=== PATIENT | male | born 1970 | race Caucasian/White ===

== ENCOUNTER 2019-04-29 21:06 | Inpatient (IN) | payer BC, OTHER ==
[~2019-04-29] VITALS: Ht 185.4 cm; Wt 75.7 kg
[2019-04-29 21:06] VITALS: BP_SYST 98
[2019-04-29] MEDS ORDERED: NACL 0.9% 1,000 ML IV ONE (21:15)
[2019-04-29] MEDS ORDERED: PIPERACILLIN/TAZO 3.375 GM in NS 50 ML IV ONE (21:15)
[2019-04-29] MEDS ORDERED: VANCOMYCIN HCL 1,000 MG in NS 250 ML IV ONE ×2 (21:15→21:45)
[2019-04-29] MEDS ORDERED: DIPH-TET-PERTUS Vaccine 0.5 ML VIAL (ADACEL) I.M. ONE (21:45)
[2019-04-29 22:03] LABS: BILIRUBIN,URINE NEGATIVE (NEGATIVE); CLARITY/URINE SL CLOUDY (CLEAR); COLOR,URINE YELLOW (YELLOW); GLUCOSE,URINE NEGATIVE (NEGATIVE); KETONES,URINE NEGATIVE (NEGATIVE); LEUKOCYTE ESTERASE ,URINE 2+ (NEGATIVE); NITRITE, URINE POSITIVE (NEGATIVE); PROTEIN URINE NEGATIVE (NEGATIVE); UROBILINOGEN,URINE 0.2 (0.2-1.0)
[2019-04-29 22:07] LABS: BLOOD, URINE TRACE (NEGATIVE)
[2019-04-29 22:08] LABS: BASOPHILS # (AUTO) 0.1 K/uL (0.0-0.2); BASOPHILS % (AUTO) 0.9 % (0.0-2.0); EOSINOPHILS % (AUTO) 0.2 % (0.0-4.0); HEMATOCRIT 27.2 % (36-54); HEMOGLOBIN 9.3 g/dL (14.0-18.0); LYMPHOCYTES # (AUTO) 1.9 K/uL (1.0-5.5); LYMPHOCYTES % (AUTO) 17.5 % (20.5-51.5); MEAN CORPUSCULAR HEMOGLOBIN 32 pg (27-31); MEAN CORPUSCULAR HGB CONC 34 % (32-36); MEAN CORPUSCULAR VOLUME 94 fL (79.0-98.0); MONOCYTES # (AUTO) 0.6 K/uL (0.0-1.0); MONOCYTES % (AUTO) 5.1 % (1.7-9.3); NEUTROPHILS # (AUTO) 8.5 K/uL (1.8-7.7); NEUTROPHILS % (AUTO) 76.3 % (40.0-70.0); PLATELET COUNT (AUTO) 370 K/uL (130-430); RED BLOOD CELL COUNT(AUTO) 2.89 MIL/uL (4.2-6.2); RED CELL DISTRIBUTION WIDTH 14.3 % (9.0-15.0); WHITE BLOOD COUNT (AUTO) 11.1 K/uL (4.8-10.8)
[2019-04-29 22:14] LABS: BACTERIA,URINE MANY /HPF (None Seen); MUCUS,URINE None Seen /LPF (None Seen); RBC,URINE 0-3 /HPF (0-3); WBC,URINE 80-100 /HPF (0-3)
[2019-04-29 22:29] LABS: INR 1.1 (0.80-1.20); PROTHROMBIN TIME 11.1 SECS (9.5-12.5)
[2019-04-29 22:45] LABS: CALCIUM 8.5 mg/dL (8.4-11.0); CREATININE 0.33 mg/dL (0.55-1.30); POTASSIUM 4.2 mmol/L (3.5-5.1)
[2019-04-29 22:50] LABS: ALBUMIN 2.1 g/dL (3.4-4.8); TOTAL BILIRUBIN 0.4 mg/dL (0.0-1.0)
[2019-04-29 23:12] LABS: CKMB RELATIVE INDEX 0.1 (0.0-2.9)
[2019-04-30 06:36] LABS: BASOPHILS # (AUTO) 0.1 K/uL (0.0-0.2); BASOPHILS % (AUTO) 0.5 % (0.0-2.0); EOSINOPHILS % (AUTO) 0.4 % (0.0-4.0); HEMATOCRIT 27.3 % (36-54); HEMOGLOBIN 9.5 g/dL (14.0-18.0); LYMPHOCYTES # (AUTO) 1.1 K/uL (1.0-5.5); LYMPHOCYTES % (AUTO) 10.7 % (20.5-51.5); MEAN CORPUSCULAR HEMOGLOBIN 33 pg (27-31); MEAN CORPUSCULAR HGB CONC 35 % (32-36); MEAN CORPUSCULAR VOLUME 95 fL (79.0-98.0); MONOCYTES # (AUTO) 0.6 K/uL (0.0-1.0); MONOCYTES % (AUTO) 5.5 % (1.7-9.3); NEUTROPHILS # (AUTO) 8.8 K/uL (1.8-7.7); NEUTROPHILS % (AUTO) 82.9 % (40.0-70.0); PLATELET COUNT (AUTO) 323 K/uL (130-430); RED BLOOD CELL COUNT(AUTO) 2.87 MIL/uL (4.2-6.2); RED CELL DISTRIBUTION WIDTH 13.9 % (9.0-15.0); WHITE BLOOD COUNT (AUTO) 10.7 K/uL (4.8-10.8)
[2019-04-30 06:57] LABS: ALBUMIN 1.9 g/dL (3.4-4.8); CALCIUM 7.9 mg/dL (8.4-11.0); CREATININE 0.31 mg/dL (0.55-1.30); PHOSPHORUS 3.2 mg/dL (2.7-4.5); POTASSIUM 4.1 mmol/L (3.5-5.1); TOTAL BILIRUBIN 0.5 mg/dL (0.0-1.0)
[2019-04-30] MEDS: IPRATROPIUM/ALBUTEROL SULFATE 3 ML AMPUL.NEB (DUONEB) INH SCH ×3 (07:00→15:36)
[2019-04-30] MEDS: LevETIRAcetam 500 MG/5 ML UDC ORAL LIQUID GT SCH ×2 (09:00→21:15)
[2019-04-30] MEDS: PIPERACILLIN/TAZO 3.375 GM in NS 50 ML IV SCH ×3 (10:02→21:28)
[2019-04-30] MEDS: metroNIDAZOLE 500 mg/NS 100 ML IV SCH ×3 (10:02→21:27)
[2019-04-30 10:15] VITALS: BP_SYST 127
[2019-04-30 10:31] VITALS: BP_SYST 105
[2019-04-30 10:42] VITALS: BP_SYST 116
[2019-04-30] MEDS ORDERED: IPRATROPIUM/ALBUTEROL SULFATE 3 ML AMPUL.NEB (DUONEB) ONE (15:32)
[2019-04-30 15:33] VITALS: BP_SYST 121
[2019-04-30 20:00] VITALS: BP_SYST 123
[2019-04-30] MEDS ORDERED: ACETAMINOPHEN 325 MG TABLET ONE (21:22)
[2019-04-30] MEDS: ACETAMINOPHEN 325 MG TABLET PO PRN (21:24)
[2019-05-01] MEDS ORDERED: IPRATROPIUM/ALBUTEROL SULFATE 3 ML AMPUL.NEB (DUONEB) ONE ×4 (00:26→11:10)
[2019-05-01] MEDS: IPRATROPIUM/ALBUTEROL SULFATE 3 ML AMPUL.NEB (DUONEB) INH SCH ×7 (00:29→23:58)
[2019-05-01 01:06] VITALS: BP_SYST 130
[2019-05-01 04:00] VITALS: BP_SYST 150
[2019-05-01] MEDS: 0.45% NACL 1,000 ML IV SCH ×2 (06:03→23:26)
[2019-05-01] MEDS: metroNIDAZOLE 500 mg/NS 100 ML IV SCH ×3 (06:03→21:17)
[2019-05-01] MEDS: PIPERACILLIN/TAZO 3.375 GM in NS 50 ML IV SCH ×3 (06:04→21:17)
[2019-05-01] MEDS: LANSOPRAZOLE 30 MG CAPSULE.DR GT SCH (06:05)
[2019-05-01 07:19] LABS: BASOPHILS # (AUTO) 0.1 K/uL (0.0-0.2); BASOPHILS % (AUTO) 0.5 % (0.0-2.0); EOSINOPHILS % (AUTO) 0.1 % (0.0-4.0); HEMATOCRIT 32.8 % (36-54); HEMOGLOBIN 11.1 g/dL (14.0-18.0); LYMPHOCYTES # (AUTO) 0.7 K/uL (1.0-5.5); LYMPHOCYTES % (AUTO) 4.8 % (20.5-51.5); MEAN CORPUSCULAR HEMOGLOBIN 32 pg (27-31); MEAN CORPUSCULAR HGB CONC 34 % (32-36); MEAN CORPUSCULAR VOLUME 94 fL (79.0-98.0); MONOCYTES # (AUTO) 0.5 K/uL (0.0-1.0); MONOCYTES % (AUTO) 3.2 % (1.7-9.3); NEUTROPHILS # (AUTO) 13.5 K/uL (1.8-7.7); NEUTROPHILS % (AUTO) 91.4 % (40.0-70.0); PLATELET COUNT (AUTO) 447 K/uL (130-430); RED BLOOD CELL COUNT(AUTO) 3.47 MIL/uL (4.2-6.2); WHITE BLOOD COUNT (AUTO) 14.7 K/uL (4.8-10.8)
[2019-05-01 08:07] LABS: POTASSIUM 4.1 mmol/L (3.5-5.1)
[2019-05-01 08:08] LABS: CALCIUM 7.9 mg/dL (8.4-11.0); CREATININE 0.38 mg/dL (0.55-1.30)
[2019-05-01 11:24] VITALS: BP_SYST 106
[2019-05-01] MEDS: LevETIRAcetam 500 MG/5 ML UDC ORAL LIQUID GT SCH ×2 (15:20→21:17)
[2019-05-01 15:22] VITALS: BP_SYST 95
[2019-05-01 20:00] VITALS: BP_SYST 110
[2019-05-01 23:50] VITALS: BP_SYST 108
[2019-05-02] MEDS: IPRATROPIUM/ALBUTEROL SULFATE 3 ML AMPUL.NEB (DUONEB) INH SCH ×6 (03:46→23:32)
[2019-05-02] MEDS: metroNIDAZOLE 500 mg/NS 100 ML IV SCH ×2 (05:17→15:01)
[2019-05-02] MEDS: PIPERACILLIN/TAZO 3.375 GM in NS 50 ML IV SCH ×3 (05:17→22:11)
[2019-05-02] MEDS: LANSOPRAZOLE 30 MG CAPSULE.DR GT SCH (06:04)
[2019-05-02 07:17] LABS: BASOPHILS % (AUTO) 0.3 % (0.0-2.0); EOSINOPHILS % (AUTO) 0.2 % (0.0-4.0); LYMPHOCYTES # (AUTO) 1.1 K/uL (1.0-5.5); LYMPHOCYTES % (AUTO) 10.7 % (20.5-51.5); MEAN CORPUSCULAR HEMOGLOBIN 33 pg (27-31); MEAN CORPUSCULAR HGB CONC 35 % (32-36); MEAN CORPUSCULAR VOLUME 96 fL (79.0-98.0); MONOCYTES # (AUTO) 0.6 K/uL (0.0-1.0); MONOCYTES % (AUTO) 5.8 % (1.7-9.3); NEUTROPHILS # (AUTO) 8.7 K/uL (1.8-7.7); PLATELET COUNT (AUTO) 290 K/uL (130-430); RED BLOOD CELL COUNT(AUTO) 2.69 MIL/uL (4.2-6.2); RED CELL DISTRIBUTION WIDTH 14.2 % (9.0-15.0); WHITE BLOOD COUNT (AUTO) 10.5 K/uL (4.8-10.8)
[2019-05-02 08:00] VITALS: BP_SYST 102
[2019-05-02] MEDS: LevETIRAcetam 500 MG/5 ML UDC ORAL LIQUID GT SCH ×2 (08:27→22:06)
[2019-05-02 11:30] VITALS: BP_SYST 107
[2019-05-02] MEDS: MUPIROCIN 2% TOPICAL OINTMENT 22 GM NS SCH ×2 (14:08→22:08)
[2019-05-02] MEDS: 0.45% NACL 1,000 ML IV SCH (14:09)
[2019-05-02 15:35] VITALS: BP_SYST 108
[2019-05-02 20:24] VITALS: BP_SYST 117
[2019-05-02] MEDS: INSULIN REGULAR, HUMAN 100 UNITS/ML, 10 ML VIAL (humuLIN R) SUBCUT PRN (22:08)
[2019-05-03] MEDS: IPRATROPIUM/ALBUTEROL SULFATE 3 ML AMPUL.NEB (DUONEB) INH SCH ×5 (03:28→23:24)
[2019-05-03 04:31] VITALS: BP_SYST 109
[2019-05-03 05:32] VITALS: BP_SYST 115
[2019-05-03] MEDS: PIPERACILLIN/TAZO 3.375 GM in NS 50 ML IV SCH (05:37)
[2019-05-03] MEDS: INSULIN REGULAR, HUMAN 100 UNITS/ML, 10 ML VIAL (humuLIN R) SUBCUT PRN (06:08)
[2019-05-03] MEDS: LANSOPRAZOLE 30 MG CAPSULE.DR GT SCH (06:19)
[2019-05-03 08:00] VITALS: BP_SYST 114
[2019-05-03] MEDS: LevETIRAcetam 500 MG/5 ML UDC ORAL LIQUID GT SCH ×2 (08:32→21:32)
[2019-05-03] MEDS: MUPIROCIN 2% TOPICAL OINTMENT 22 GM NS SCH ×2 (08:33→21:32)
[2019-05-03] MEDS: LEVOFLOXACIN 500 MG/D5W 100 ML IV SCH (10:28)
[2019-05-03 11:33] VITALS: BP_SYST 125
[2019-05-03] MEDS: VANCOMYCIN HCL 1 GM/NS PREMIX 250 ML IV SCH ×2 (11:35→19:00)
[2019-05-03 15:33] VITALS: BP_SYST 134
[2019-05-03 18:01] VITALS: BP_SYST 134
[2019-05-04 00:06] VITALS: BP_SYST 132
[2019-05-04] MEDS: VANCOMYCIN HCL 1 GM/NS PREMIX 250 ML IV SCH (02:55)
[2019-05-04] MEDS: IPRATROPIUM/ALBUTEROL SULFATE 3 ML AMPUL.NEB (DUONEB) INH SCH ×6 (04:03→23:25)
[2019-05-04] MEDS: LANSOPRAZOLE 30 MG CAPSULE.DR GT SCH (06:05)
[2019-05-04 06:39] LABS: BASOPHILS % (AUTO) 0.4 % (0.0-2.0); EOSINOPHILS % (AUTO) 0.4 % (0.0-4.0); HEMATOCRIT 27.3 % (36-54); HEMOGLOBIN 9.4 g/dL (14.0-18.0); LYMPHOCYTES # (AUTO) 1.3 K/uL (1.0-5.5); LYMPHOCYTES % (AUTO) 13.6 % (20.5-51.5); MEAN CORPUSCULAR HEMOGLOBIN 33 pg (27-31); MEAN CORPUSCULAR HGB CONC 35 % (32-36); MEAN CORPUSCULAR VOLUME 96 fL (79.0-98.0); MONOCYTES # (AUTO) 0.6 K/uL (0.0-1.0); MONOCYTES % (AUTO) 5.9 % (1.7-9.3); NEUTROPHILS # (AUTO) 7.8 K/uL (1.8-7.7); NEUTROPHILS % (AUTO) 79.7 % (40.0-70.0); PLATELET COUNT (AUTO) 293 K/uL (130-430); RED BLOOD CELL COUNT(AUTO) 2.83 MIL/uL (4.2-6.2); RED CELL DISTRIBUTION WIDTH 13.9 % (9.0-15.0); WHITE BLOOD COUNT (AUTO) 9.8 K/uL (4.8-10.8)
[2019-05-04 06:54] LABS: CALCIUM 7.6 mg/dL (8.4-11.0); CREATININE 0.35 mg/dL (0.55-1.30); POTASSIUM 4.3 mmol/L (3.5-5.1)
[2019-05-04 08:00] VITALS: BP_SYST 125
[2019-05-04] MEDS: LevETIRAcetam 500 MG/5 ML UDC ORAL LIQUID GT SCH ×2 (09:27→20:56)
[2019-05-04] MEDS: LEVOFLOXACIN 500 MG/D5W 100 ML IV SCH (09:27)
[2019-05-04] MEDS: MUPIROCIN 2% TOPICAL OINTMENT 22 GM NS SCH ×2 (09:28→20:57)
[2019-05-04 12:20] VITALS: BP_SYST 118
[2019-05-04 16:03] VITALS: BP_SYST 106
[2019-05-04] MEDS: VANCOMYCIN HCL 1,500 MG in NS 250 ML IV SCH (18:05)
[2019-05-04 20:00] VITALS: BP_SYST 132
[2019-05-04 23:38] VITALS: BP_SYST 132
[2019-05-05 00:20] VITALS: BP_SYST 116
[2019-05-05] MEDS: VANCOMYCIN HCL 1,500 MG in NS 250 ML IV SCH ×3 (03:06→18:26)
[2019-05-05] MEDS: IPRATROPIUM/ALBUTEROL SULFATE 3 ML AMPUL.NEB (DUONEB) INH SCH ×6 (03:10→23:48)
[2019-05-05] MEDS: LANSOPRAZOLE 30 MG CAPSULE.DR GT SCH (06:26)
[2019-05-05 08:23] VITALS: BP_SYST 116
[2019-05-05] MEDS: LEVOFLOXACIN 500 MG/D5W 100 ML IV SCH (10:26)
[2019-05-05] MEDS: LevETIRAcetam 500 MG/5 ML UDC ORAL LIQUID GT SCH ×2 (10:26→21:20)
[2019-05-05] MEDS: MUPIROCIN 2% TOPICAL OINTMENT 22 GM NS SCH ×2 (10:27→21:22)
[2019-05-05 12:45] VITALS: BP_SYST 104
[2019-05-05] MEDS ORDERED: CHLORHEXIDINE GLUCONATE 15 ML/DOSE, 480 ML MM ONE (15:30)
[2019-05-05 16:47] VITALS: BP_SYST 107
[2019-05-05 20:00] VITALS: BP_SYST 107
[2019-05-05] MEDS: CHLORHEXIDINE GLUCONATE 15 ML/DOSE, 480 ML MM SCH (21:20)
[2019-05-06] MEDS: VANCOMYCIN HCL 1,500 MG in NS 250 ML IV SCH ×3 (03:45→18:01)
[2019-05-06] MEDS: IPRATROPIUM/ALBUTEROL SULFATE 3 ML AMPUL.NEB (DUONEB) INH SCH ×6 (03:54→23:23)
[2019-05-06 04:30] VITALS: BP_SYST 110
[2019-05-06] MEDS: LANSOPRAZOLE 30 MG CAPSULE.DR GT SCH (06:34)
[2019-05-06 08:00] VITALS: BP_SYST 119
[2019-05-06] MEDS: LevETIRAcetam 500 MG/5 ML UDC ORAL LIQUID GT SCH ×2 (09:54→21:43)
[2019-05-06] MEDS: MUPIROCIN 2% TOPICAL OINTMENT 22 GM NS SCH ×2 (09:54→21:44)
[2019-05-06] MEDS: CHLORHEXIDINE GLUCONATE 15 ML/DOSE, 480 ML MM SCH ×2 (09:55→21:44)
[2019-05-06 11:22] VITALS: BP_SYST 120
[2019-05-06] MEDS: LEVOFLOXACIN 500 MG/D5W 100 ML IV SCH (11:47)
[2019-05-06] MEDS: ACETAMINOPHEN 325 MG TABLET PO PRN (14:10)
[2019-05-06] MEDS ORDERED: ACETAMINOPHEN 325 MG TABLET ONE (14:23)
[2019-05-06] MEDS ORDERED: PIPERACILLIN/TAZO 4.5GM/DEX-IS 100 ML IV ONE (15:00)
[2019-05-06 15:16] VITALS: BP_SYST 109
[2019-05-06 16:40] VITALS: BP_SYST 109
[2019-05-06 20:00] VITALS: BP_SYST 111
[2019-05-06] MEDS: PIPERACILLIN/TAZO 4.5GM/DEX-IS 100 ML IV SCH (21:46)
[2019-05-07 02:41] VITALS: BP_SYST 122
[2019-05-07] MEDS: IPRATROPIUM/ALBUTEROL SULFATE 3 ML AMPUL.NEB (DUONEB) INH SCH ×5 (03:13→20:01)
[2019-05-07] MEDS: VANCOMYCIN HCL 1,500 MG in NS 250 ML IV SCH ×3 (03:51→18:03)
[2019-05-07] MEDS: PIPERACILLIN/TAZO 4.5GM/DEX-IS 100 ML IV SCH ×2 (06:57→14:10)
[2019-05-07] MEDS: LANSOPRAZOLE 30 MG CAPSULE.DR GT SCH (06:57)
[2019-05-07 07:35] LABS: BASOPHILS # (AUTO) 0.1 K/uL (0.0-0.2); BASOPHILS % (AUTO) 0.8 % (0.0-2.0); EOSINOPHILS % (AUTO) 0.1 % (0.0-4.0); HEMATOCRIT 29.3 % (36-54); LYMPHOCYTES # (AUTO) 1.4 K/uL (1.0-5.5); LYMPHOCYTES % (AUTO) 13.4 % (20.5-51.5); MEAN CORPUSCULAR HEMOGLOBIN 33 pg (27-31); MEAN CORPUSCULAR HGB CONC 34 % (32-36); MEAN CORPUSCULAR VOLUME 96 fL (79.0-98.0); MONOCYTES # (AUTO) 0.9 K/uL (0.0-1.0); MONOCYTES % (AUTO) 8.5 % (1.7-9.3); NEUTROPHILS # (AUTO) 7.9 K/uL (1.8-7.7); NEUTROPHILS % (AUTO) 77.2 % (40.0-70.0); PLATELET COUNT (AUTO) 226 K/uL (130-430); RED BLOOD CELL COUNT(AUTO) 3.05 MIL/uL (4.2-6.2); RED CELL DISTRIBUTION WIDTH 14.4 % (9.0-15.0); WHITE BLOOD COUNT (AUTO) 10.2 K/uL (4.8-10.8)
[2019-05-07 08:00] VITALS: BP_SYST 104
[2019-05-07 08:14] LABS: CALCIUM 7.7 mg/dL (8.4-11.0); CREATININE 0.37 mg/dL (0.55-1.30); POTASSIUM 3.8 mmol/L (3.5-5.1)
[2019-05-07] MEDS ORDERED: ACETAMINOPHEN 325 MG TABLET ONE (10:26)
[2019-05-07] MEDS: LEVOFLOXACIN 500 MG/D5W 100 ML IV SCH (10:26)
[2019-05-07] MEDS: CHLORHEXIDINE GLUCONATE 15 ML/DOSE, 480 ML MM SCH (10:27)
[2019-05-07] MEDS: LevETIRAcetam 500 MG/5 ML UDC ORAL LIQUID GT SCH (10:27)
[2019-05-07] MEDS: ACETAMINOPHEN 325 MG TABLET PO PRN (10:28)
[2019-05-07 11:41] VITALS: BP_SYST 123
[2019-05-07 15:22] VITALS: BP_SYST 135
[2019-05-07 16:27] VITALS: BP_SYST 135
== END 2019-05-07 20:55 | DRG 871 ==
LOC: SED 21:06 → STU 04-30 03:45
PROVIDERS: ADMIT Internal Medicine; ATTEND Internal Medicine
DX: A41.59 Other Gram-negative sepsis (principal); E43 Unspecified severe protein-calorie malnutrition; G92 Toxic encephalopathy; J15.1 Pneumonia due to Pseudomonas; J15.212 Pneumonia due to Methicillin resistant Staphylococcus aureus; N39.0 Urinary tract infection, site not specified; J96.10 Chronic respiratory failure, unspecified whether with hypoxia or hypercapnia; D64.9 Anemia, unspecified; Z86.73 Personal history of transient ischemic attack (TIA), and cerebral infarction without residual deficits; I10 Essential (primary) hypertension; E78.5 Hyperlipidemia, unspecified; E11.9 Type 2 diabetes mellitus without complications; Y95 Nosocomial condition; G40.909 Epilepsy, unspecified, not intractable, without status epilepticus; Z83.3 Family history of diabetes mellitus; Z82.3 Family history of stroke; Z93.0 Tracheostomy status; Z68.22 Body mass index [BMI] 22.0-22.9, adult; Z79.899 Other long term (current) drug therapy
CPT/HCPCS: 36415; 71045; 76700-TC; 78226; 80048; 80053; 80202-TC; 81000-TC; 82550-TC; 82553-TC; 82962; 83605; 83690-TC; 83880; 84100-TC; 84484; 85025; 85610-TC; 85730-TC; 87040-TC; 87070-TC; 87081; 87086; 87186-TC; 87205-TC; 93005; 94640; 94760; 96365; 96368; 99285; A9537; G0378; J1815; J1956; J2543; J3370; J3490; J7030; J7050; J7620